=== PATIENT | female | born 1985 | race Caucasian/White ===

== ENCOUNTER 2017-05-27 07:10 | Emergency (ER) | payer MEDICAID ==
[~2017-05-27] VITALS: Ht 172.7 cm; Wt 149.3 kg
[~2017-05-27 07:10] MED LIST: NO HOME MEDS
[2017-05-27] MEDS ORDERED: TRAM50TA2 PO (07:31)
[2017-05-27] MEDS ORDERED: IBUP-1986 PO (07:31)
[2017-05-27 07:42] VITALS: BP 181/119
== END 2017-05-27 07:40 | disposition home or self-care (01) ==
LOC: ER 07:11
DX: M25.561 Pain in right knee (principal); G89.29 Other chronic pain; E11.9 Type 2 diabetes mellitus without complications; Z88.8 Allergy status to other drugs, medicaments and biological substances; Z79.899 Other long term (current) drug therapy
CPT/HCPCS: 99283; A6449

== ENCOUNTER 2017-08-20 07:50 | Emergency (ER) | payer MEDICAID ==
[~2017-08-20] VITALS: Ht 170.2 cm; Wt 147.3 kg
[~2017-08-20 07:50] MED LIST changes: +IBUP-1986 PO
[2017-08-20] MEDS ORDERED: metoprolol succinate 25mg (24-HOUR) SR. Tablet PO STA (08:34)
[2017-08-20] MEDS ORDERED: lisinopril 10 MG tablet PO ONE (08:35)
[2017-08-20] MEDS ORDERED: benzonatate 100mg capsule PO ONE (08:35)
[2017-08-20] MEDS ORDERED: hyDROXYzine 50 mg/ml injection ***IM only IM ONE (08:35)
[2017-08-20] MEDS ORDERED: ALBU8.5H8 IH (08:44)
[2017-08-20] MEDS ORDERED: HYDR25CA PO (08:44)
[2017-08-20] MEDS ORDERED: BENZ-38 PO (08:44)
[2017-08-20] MEDS ORDERED: METO-395 PO (08:44)
[2017-08-20 09:12] VITALS: BP 170/74
== END 2017-08-20 09:13 | disposition home or self-care (01) ==
LOC: ER 07:51
DX: F19.939 Other psychoactive substance use, unspecified with withdrawal, unspecified (principal); F17.210 Nicotine dependence, cigarettes, uncomplicated; I10 Essential (primary) hypertension; F41.9 Anxiety disorder, unspecified; E11.9 Type 2 diabetes mellitus without complications; G89.29 Other chronic pain; F12.90 Cannabis use, unspecified, uncomplicated; Z98.890 Other specified postprocedural states
CPT/HCPCS: 96372; 99284; J3410; 99283